=== PATIENT | female | born 1990 | race African-American/Black ===

== ENCOUNTER 2017-12-28 09:32 | Inpatient (IN) | payer BC, MEDICAID, OTHER ==
[~2017-12-28] VITALS: Ht 160 cm; Wt 61.2 kg
[2017-12-28] MEDS ORDERED: SODIUM CHLORIDE 0.9% 1,000 ML IV ONE ×2 (10:09→14:39)
[2017-12-28] MEDS ORDERED: ONDANSETRON HCL 4MG/2ML INJ IV STA (10:09)
[2017-12-28] MEDS ORDERED: MORPHINE SULFATE 4 MG/ML CPJ (NOT FOR IM USE) IV STA (10:09)
[2017-12-28] MEDS ORDERED: FAMOTIDINE 20MG/2ML VIAL IV STA (10:09)
[2017-12-28 10:27] LABS: BASOPHILS % 1.4 % (0.0-2.0); EOSINOPHILS % 1.6 % (0.0-5.0); HEMATOCRIT. 42.7 % (36.0-48.0); HEMOGLOBIN. 14.6 g/dL (12.0-16.0); LYMPHOCYTES % 24.9 % (20.0-50.0); MEAN CORPUSCULAR HEMOGLOBIN 31.6 pg (28.0-32.0); MEAN CORPUSCULAR VOLUME 92.5 fL (81.0-99.0); MEAN PLATELET VOLUME 9.1 fl (7.4-10.4); MONOCYTES % 5.9 % (2.0-8.0); NEUTROPHILS % 66.2 % (40.0-76.0); PLATELET 281 x1000/uL (130-400); RED BLOOD CELL COUNT 4.62 mill/uL (4.2-5.4); RED CELL DISTRIBUTION WIDTH 14.2 % (11.6-14.6)
[2017-12-28] MEDS ORDERED: DIATR MEGLU/DIATRIZOATE SOLN 30ML ONE (10:35)
[2017-12-28 10:37] LABS: INR 1.3; PARTIAL THROMBOPLASTIN TIME 27.6 sec (23.4-31.0); PROTHROMBIN TIME 12.8 sec (9.1-11.1)
[2017-12-28 12:25] LABS: CHLORIDE 108 mEq/L (98-107)
[2017-12-28 12:37] LABS: HCG SCREEN NEGATIVE
[2017-12-28] MEDS ORDERED: ONDANSETRON HCL 4MG/2ML INJ IV ONE (14:45)
[2017-12-28] MEDS ORDERED: IOHEXOL-300 100 ML BOTTLE ONE (15:29)
[2017-12-28] MEDS ORDERED: [UNRECOGNIZED DRUG - OTHER] PO (17:23)
[2017-12-28] MEDS ORDERED: ONDANSETRON HCL 4MG/2ML INJ IV PRN (17:30)
[2017-12-28] MEDS ORDERED: DEXT 5%/0.45% NACL 1000ML 1,000 ML IV SCH (17:30)
[2017-12-28 17:34] VITALS: BP 117/74
[2017-12-28 17:50] VITALS: BP 104/56
[2017-12-28] MEDS ORDERED: MESA1.2T2 MT (18:11)
[2017-12-28] MEDS ORDERED: MORPHINE SULFATE 4 MG/ML CPJ (NOT FOR IM USE) IV PRN (18:31)
[2017-12-28 20:00] VITALS: BP 113/46
[2017-12-28] MEDS ORDERED: METHYLPREDNISOLONE SOD SUCC 40 MG/ML VIAL IV SCH (20:00)
[2017-12-28] MEDS ORDERED: CEFTRIAXONE 1 G PREMIX 50 ML IV SCH (21:00)
[2017-12-28] MEDS ORDERED: METRONIDAZOLE 500 MG PREMIX 100 ML IV SCH (22:00)
[2017-12-28 22:54] LABS: CLARITY URINE CLEAR (CLEAR); COLOR URINE YELLOW (YELLOW); KETONES URINE 2+ (NEGATIVE); LEUKOCYTE ESTERASE URINE NEGATIVE (NEGATIVE); NITRITE URINE NEGATIVE (NEGATIVE); OCCULT BLOOD URINE NEGATIVE (NEGATIVE); PROTEIN URINE NEGATIVE (NEGATIVE); SPECIFIC GRAVITY URINE 1.086 (1.005-1.030); UROBILINOGEN URINE 0.2 E.U./dL (0.2-1.0)
[2017-12-28 23:24] LABS: *COCAINE SCREEN URINE NEGATIVE (NEGATIVE)
[2017-12-28 23:25] LABS: *AMPHETAMINES SCREEN URINE NEGATIVE (NEGATIVE); *BARBITURATES SCREEN URINE NEGATIVE (NEGATIVE); *BENZODIAZEPINES SCREEN URINE NEGATIVE (NEGATIVE); METHADONE URINE SCREEN NEGATIVE (NEGATIVE); PHENCYCLIDINE URINE SCREEN NEGATIVE (NEGATIVE)
[2017-12-28 23:32] LABS: CANNABINOID URINE SCREEN PRESUMTIVE POSITIVE (NEGATIVE); OPIATES URINE SCREEN PRESUMTIVE POSITIVE (NEGATIVE)
[2017-12-29 00:30] VITALS: BP 121/74
[2017-12-29] MEDS ORDERED: PANTOPRAZOLE SODIUM 40 MG/VIAL IV SCH (09:00)
== END 2017-12-29 01:40 | disposition left against medical advice (07) | DRG 245 ==
LOC: ER 10:23 → 8WST 14:40 → EDBEDREQ 14:50 → ENRESERV 15:20
PROVIDERS: ADMIT Internal Medicine; ATTEND Internal Medicine
DX: K51.90 Ulcerative colitis, unspecified, without complications (principal); E87.8 Other disorders of electrolyte and fluid balance, not elsewhere classified; F12.90 Cannabis use, unspecified, uncomplicated; Z53.21 Procedure and treatment not carried out due to patient leaving prior to being seen by health care provider
CPT/HCPCS: 36415; 74177; 80305; 84703; 85651; 96361; 96374; 96375; 99285; J0696; J2270; J2405; J2920; J3490; J7030; Q9963; Q9967

== ENCOUNTER 2018-05-03 08:25 | Emergency (ER) | payer OTHER ==
[~2018-05-03] VITALS: Ht 162.6 cm; Wt 68.0 kg
[~2018-05-03 08:25] MED LIST: MESA1.2T2 MT
[2018-05-03 08:32] VITALS: BP 140/65
== END 2018-05-03 12:25 | disposition home or self-care (01) ==
LOC: ER 08:25
DX: R11.2 Nausea with vomiting, unspecified (principal); F12.10 Cannabis abuse, uncomplicated; K51.90 Ulcerative colitis, unspecified, without complications; Z76.0 Encounter for issue of repeat prescription
CPT/HCPCS: 99283

== ENCOUNTER 2018-08-02 21:34 | Emergency (ER) | payer OTHER | END 2018-08-03 03:50 | disposition left against medical advice (07) | LOC: ER 21:34 | DX: Z53.21 Procedure and treatment not carried out due to patient leaving prior to being seen by health care provider (principal) ==

== ENCOUNTER 2018-08-02 21:41 | Inpatient (IN) | payer OTHER ==
[~2018-08-02] VITALS: Ht 162.6 cm; Wt 70.3 kg
[2018-08-03] MEDS ORDERED: ONDANSETRON HCL 4MG/2ML INJ IV STA (00:44)
[2018-08-03] MEDS ORDERED: MORPHINE SULFATE 4 MG/ML CPJ (NOT FOR IM USE) IV STA (00:44)
[2018-08-03] MEDS ORDERED: SODIUM CHLORIDE 0.9% 1,000 ML IV ONE (00:44)
[2018-08-03 01:08] LABS: BASOPHILS % 0.3 % (0.0-2.0); EOSINOPHILS % 0.5 % (0.0-5.0); HEMATOCRIT. 41.5 % (36.0-48.0); HEMOGLOBIN. 14.1 g/dL (12.0-16.0); MEAN CORPUSCULAR HEMOGLOBIN 30.9 pg (28.0-32.0); MEAN CORPUSCULAR VOLUME 91.1 fL (81.0-99.0); MONOCYTES % 7.7 % (2.0-8.0); NEUTROPHILS % 69.5 % (40.0-76.0); PLATELET 317 x1000/uL (130-400); RED BLOOD CELL COUNT 4.55 mill/uL (4.2-5.4); RED CELL DISTRIBUTION WIDTH 13.6 % (11.6-14.6)
[2018-08-03 01:17] LABS: CHLORIDE 103 mEq/L (98-107)
[2018-08-03 01:18] LABS: INR 1.3; PARTIAL THROMBOPLASTIN TIME 29.4 sec (23.4-31.0); PROTHROMBIN TIME 13.1 sec (9.6-11.0)
[2018-08-03 01:38] LABS: CLARITY URINE CLEAR (CLEAR); COLOR URINE YELLOW (YELLOW); KETONES URINE 4+ (NEGATIVE); LEUKOCYTE ESTERASE URINE NEGATIVE (NEGATIVE); NITRITE URINE NEGATIVE (NEGATIVE); OCCULT BLOOD URINE NEGATIVE (NEGATIVE); PH URINE 5.5 (4.5-8.0); PROTEIN URINE TRACE (NEGATIVE); SPECIFIC GRAVITY URINE 1.036 (1.005-1.030)
[2018-08-03 01:40] LABS: B-HCG QUANTITATIVE 35129 mIU/mL (<3)
[2018-08-03] MEDS ORDERED: ONDANSETRON HCL 4MG/2ML INJ IV ONE (04:45)
[2018-08-03 09:00] VITALS: BP 101/48
[2018-08-03 10:12] VITALS: BP 101/48
[2018-08-03] MEDS ORDERED: ACETAMINOPHEN 650MG SUPP PR PRN (11:15)
[2018-08-03] MEDS: DEXT 5%/0.45% NACL 1000ML 1,000 ML IV SCH (11:15)
[2018-08-03 12:00] VITALS: BP 111/65
[2018-08-03 12:10] LABS: HEMATOCRIT 38.3 % (36.0-48.0); HEMOGLOBIN 13.1 g/dL (12.0-16.0)
[2018-08-03 15:05] LABS: *AMPHETAMINES SCREEN URINE NEGATIVE (NEGATIVE); *BARBITURATES SCREEN URINE NEGATIVE (NEGATIVE); *BENZODIAZEPINES SCREEN URINE NEGATIVE (NEGATIVE); *COCAINE SCREEN URINE NEGATIVE (NEGATIVE); METHADONE URINE SCREEN NEGATIVE (NEGATIVE); PHENCYCLIDINE URINE SCREEN NEGATIVE (NEGATIVE)
[2018-08-03 15:11] LABS: CANNABINOID URINE SCREEN PRESUMTIVE POSITIVE (NEGATIVE); OPIATES URINE SCREEN PRESUMTIVE POSITIVE (NEGATIVE)
[2018-08-03 16:00] VITALS: BP 98/54
[2018-08-03] MEDS: NITROFURANTOIN MACROCRYSTAL 50MG CAPSULE PO SCH (17:39)
[2018-08-03 20:00] VITALS: BP 101/61
[2018-08-03] MEDS: SULFASALAZINE 500MG TABLET PO SCH (21:23)
[2018-08-04] VITALS: BP 114/52
[2018-08-04] MEDS: NITROFURANTOIN MACROCRYSTAL 50MG CAPSULE PO SCH ×2 (00:13→05:45)
[2018-08-04] MEDS: ONDANSETRON HCL 4MG/2ML INJ IV PRN ×2 (00:14→20:36)
[2018-08-04] MEDS: DEXT 5%/0.45% NACL 1000ML 1,000 ML IV SCH ×2 (00:46→16:16)
[2018-08-04 04:00] VITALS: BP 103/56
[2018-08-04 06:43] LABS: BASOPHILS % 0.8 % (0.0-2.0); EOSINOPHILS % 2.1 % (0.0-5.0); HEMATOCRIT. 35.2 % (36.0-48.0); HEMOGLOBIN. 12.1 g/dL (12.0-16.0); LYMPHOCYTES % 27.4 % (20.0-50.0); MEAN CORPUSCULAR HEMOGLOBIN 31.2 pg (28.0-32.0); MEAN CORPUSCULAR VOLUME 91.1 fL (81.0-99.0); MEAN PLATELET VOLUME 9.2 fl (7.4-10.4); MONOCYTES % 10.8 % (2.0-8.0); NEUTROPHILS % 58.9 % (40.0-76.0); PLATELET 256 x1000/uL (130-400); RED BLOOD CELL COUNT 3.86 mill/uL (4.2-5.4); RED CELL DISTRIBUTION WIDTH 13.4 % (11.6-14.6)
[2018-08-04 07:12] LABS: CHLORIDE 105 mEq/L (98-107)
[2018-08-04 07:32] LABS: LDL CHOLESTEROL 73 mg/dL (5-100)
[2018-08-04 07:33] LABS: HDL CHOLESTEROL 61 mg/dL (40-59)
[2018-08-04 07:34] LABS: T4 FREE 1.12 ng/dL (0.76-1.46)
[2018-08-04 08:00] VITALS: BP 107/53
[2018-08-04] MEDS: SULFASALAZINE 500MG TABLET PO SCH ×2 (09:19→18:04)
[2018-08-04] MEDS: ACETAMINOPHEN 325MG TABLET PO PRN ×2 (09:19→21:40)
[2018-08-04 12:00] VITALS: BP 109/70
[2018-08-04] MEDS ORDERED: POTASSIUM CHLORIDE INJ 40 MEQ in DEXT 5% WATER 500 ML IV NR (12:30)
[2018-08-04] MEDS: CEFTRIAXONE 1 G PREMIX 50 ML IV SCH (14:51)
[2018-08-04 20:00] VITALS: BP 100/53
[2018-08-04] MEDS ORDERED: POTASSIUM CHLORIDE 20MEQ TABLET SR PO NR (20:20)
[2018-08-05] VITALS: BP 99/58
[2018-08-05] MEDS: DEXT 5%/0.45% NACL 1000ML 1,000 ML IV SCH ×2 (03:44→16:40)
[2018-08-05 04:00] VITALS: BP 101/46
[2018-08-05 08:00] VITALS: BP 108/49
[2018-08-05] MEDS: SULFASALAZINE 500MG TABLET PO SCH ×2 (09:16→17:23)
[2018-08-05] MEDS: CEFTRIAXONE 1 G PREMIX 50 ML IV SCH (09:16)
[2018-08-05 10:59] LABS: BASOPHILS % 0.4 % (0.0-2.0); EOSINOPHILS % 1.7 % (0.0-5.0); HEMATOCRIT. 36.9 % (36.0-48.0); HEMOGLOBIN. 12.5 g/dL (12.0-16.0); LYMPHOCYTES % 25.2 % (20.0-50.0); MEAN PLATELET VOLUME 8.9 fl (7.4-10.4); MONOCYTES % 10.1 % (2.0-8.0); NEUTROPHILS % 62.6 % (40.0-76.0); PLATELET 267 x1000/uL (130-400); RED BLOOD CELL COUNT 4.01 mill/uL (4.2-5.4); RED CELL DISTRIBUTION WIDTH 13.3 % (11.6-14.6)
[2018-08-05 11:10] LABS: CHLORIDE 108 mEq/L (98-107)
[2018-08-05 12:00] VITALS: BP 106/69
[2018-08-05] MEDS ORDERED: POTASSIUM CHLORIDE 20MEQ TABLET SR PO NR (12:30)
[2018-08-05 16:00] VITALS: BP 105/64
[2018-08-05 16:59] VITALS: BP 122/80
== END 2018-08-05 18:00 | disposition home or self-care (01) | DRG 566 ==
LOC: ER 21:41 → 6EST 08-03 05:10 → ENRESERV 08-03 07:40 → EDBEDREQ 08-03 07:49
PROVIDERS: ADMIT Internal Medicine; ATTEND Internal Medicine
DX: O99.611 Diseases of the digestive system complicating pregnancy, first trimester (principal); D68.59 Other primary thrombophilia; O20.8 Other hemorrhage in early pregnancy; K51.911 Ulcerative colitis, unspecified with rectal bleeding; O23.41 Unspecified infection of urinary tract in pregnancy, first trimester; O99.111 Other diseases of the blood and blood-forming organs and certain disorders involving the immune mechanism complicating pregnancy, first trimester; E87.6 Hypokalemia; O99.281 Endocrine, nutritional and metabolic diseases complicating pregnancy, first trimester; R06.00 Dyspnea, unspecified; O99.321 Drug use complicating pregnancy, first trimester; F12.90 Cannabis use, unspecified, uncomplicated; Z79.899 Other long term (current) drug therapy; Z3A.01 Less than 8 weeks gestation of pregnancy
CPT/HCPCS: 36415; 76801; 80048; 80061; 80305; 83605; 84145; 84439; 84443; 84481; 84484; 84702; 85014; 85018; 86850; 86900; 93306; 93970; 96374; 96375; 99285; J0696; J2270; J2405; J3480; J7030; J7060

== ENCOUNTER 2018-09-01 17:11 | Emergency (ER) | payer OTHER ==
[~2018-09-01] VITALS: Ht 162.6 cm; Wt 71.0 kg
[2018-09-01] MEDS ORDERED: ONDANSETRON HCL 4MG/2ML INJ IV STA (19:12)
[2018-09-01] MEDS ORDERED: SODIUM CHLORIDE 0.9% 1,000 ML IV ONE (19:12)
[2018-09-01] MEDS ORDERED: MORPHINE SULFATE 4 MG/ML CPJ (NOT FOR IM USE) IV STA (19:12)
[2018-09-01 20:17] LABS: BASOPHILS % 0.2 % (0.0-2.0); EOSINOPHILS % 0.2 % (0.0-5.0); HEMATOCRIT. 37.8 % (36.0-48.0); HEMOGLOBIN. 13.1 g/dL (12.0-16.0); LYMPHOCYTES % 9.2 % (20.0-50.0); MEAN CORPUSCULAR HEMOGLOBIN 31.6 pg (28.0-32.0); MEAN CORPUSCULAR VOLUME 91.2 fL (81.0-99.0); MEAN PLATELET VOLUME 9.4 fl (7.4-10.4); MONOCYTES % 3.8 % (2.0-8.0); NEUTROPHILS % 86.6 % (40.0-76.0); PLATELET 274 x1000/uL (130-400); RED BLOOD CELL COUNT 4.14 mill/uL (4.2-5.4); RED CELL DISTRIBUTION WIDTH 13.1 % (11.6-14.6)
[2018-09-01 20:21] LABS: CHLORIDE 104 mEq/L (98-107)
[2018-09-01 20:25] LABS: INR 1.2; PARTIAL THROMBOPLASTIN TIME 26.1 sec (23.4-31.0); PROTHROMBIN TIME 12.6 sec (9.6-11.0)
[2018-09-01 20:27] LABS: ETHANOL BLOOD < 10 mg/dL
[2018-09-01 20:45] LABS: B-HCG QUANTITATIVE 84618 mIU/mL (<3)
[2018-09-01 22:46] VITALS: BP 119/72
== END 2018-09-01 22:48 | disposition home or self-care (01) ==
LOC: ER 17:11
DX: O20.0 Threatened abortion (principal); O26.891 Other specified pregnancy related conditions, first trimester; Z3A.10 10 weeks gestation of pregnancy; Z98.890 Other specified postprocedural states
CPT/HCPCS: 36415; 76801; 80053; 80320; 83605; 83690; 84702; 85025; 85610; 85730; 86850; 86900; 86901; 87040; 96361; 96374; 96375; 99284; J2270; J2405; J7030; J7040; G0480

== ENCOUNTER 2018-09-03 21:06 | Inpatient (IN) | payer OTHER ==
[~2018-09-03] VITALS: Ht 162.6 cm; Wt 70.3 kg
[2018-09-03] MEDS ORDERED: SODIUM CHLORIDE 0.9% 1,000 ML IV ONE (23:15)
[2018-09-03] MEDS ORDERED: ONDANSETRON HCL 4MG/2ML INJ IV ONE (23:15)
[2018-09-03] MEDS ORDERED: METRONIDAZOLE 500 MG PREMIX 100 ML IV ONE (23:15)
[2018-09-03] MEDS ORDERED: MORPHINE SULFATE 4 MG/ML CPJ (NOT FOR IM USE) IV ONE (23:15)
[2018-09-03] MEDS ORDERED: LEVOFLOXACIN 500MG PREMIX 100 ML IV ONE (23:15)
[2018-09-04 00:08] LABS: CLARITY URINE CLOUDY (CLEAR); COLOR URINE DARK YELLOW (YELLOW); KETONES URINE 4+ (NEGATIVE); LEUKOCYTE ESTERASE URINE 1+ (NEGATIVE); NITRITE URINE NEGATIVE (NEGATIVE); OCCULT BLOOD URINE 3+ (NEGATIVE); PROTEIN URINE 1+ (NEGATIVE); SPECIFIC GRAVITY URINE 1.029 (1.005-1.030)
[2018-09-04 00:53] LABS: BASOPHILS % 0.3 % (0.0-2.0); EOSINOPHILS % 0.1 % (0.0-5.0); HEMATOCRIT. 35.9 % (36.0-48.0); HEMOGLOBIN. 12.2 g/dL (12.0-16.0); LYMPHOCYTES % 9.3 % (20.0-50.0); MEAN CORPUSCULAR HEMOGLOBIN 30.9 pg (28.0-32.0); MEAN CORPUSCULAR VOLUME 91.1 fL (81.0-99.0); MONOCYTES % 5.4 % (2.0-8.0); NEUTROPHILS % 84.9 % (40.0-76.0); PLATELET 265 x1000/uL (130-400); RED BLOOD CELL COUNT 3.94 mill/uL (4.2-5.4); RED CELL DISTRIBUTION WIDTH 12.9 % (11.6-14.6)
[2018-09-04 00:58] LABS: CHLORIDE 107 mEq/L (98-107)
[2018-09-04] MEDS ORDERED: METOCLOPRAMIDE HCL 10MG/2ML VIAL IV ONE (04:00)
[2018-09-04] MEDS ORDERED: KETOROLAC 15MG/ML VIAL IV NR (04:15)
[2018-09-04] MEDS ORDERED: KETOROLAC 30MG/ML VIAL IV ONE (04:15)
[2018-09-04 08:50] VITALS: BP 106/61
[2018-09-04] MEDS ORDERED: ONDANSETRON HCL 4MG/2ML INJ IV PRN ×2 (10:00→22:45)
[2018-09-04] MEDS ORDERED: IPRATROPIUM/ALBUTEROL 0.5-3(2.5)MG/3ML NEB INH PRN (10:00)
[2018-09-04] MEDS ORDERED: ACETAMINOPHEN 325MG TABLET PO PRN ×2 (10:00→22:45)
[2018-09-04] MEDS ORDERED: DIPHENHYDRAMINE 50MG/ML VIAL IV PRN (10:00)
[2018-09-04] MEDS ORDERED: MORPHINE SULFATE 2 MG/ML CPJ (NOT FOR IM USE) IV PRN ×2 (10:00→22:45)
[2018-09-04] MEDS ORDERED: LORAZEPAM 2MG/ML CPJ IV PRN (10:00)
[2018-09-04] MEDS ORDERED: METRONIDAZOLE 500 MG PREMIX 100 ML IV SCH (11:00)
[2018-09-04] MEDS ORDERED: FAMOTIDINE 20MG/2ML VIAL IV SCH (11:00)
[2018-09-04] MEDS ORDERED: POTASSIUM CHLORIDE INJ 40 MEQ in DEXT 5% WATER 500 ML IV SCH (11:00)
[2018-09-04 11:38] VITALS: BP 100/41
[2018-09-04] MEDS: DEXT 5%/0.45% NACL KCL 20MEQ/L 1,000 ML IV SCH (13:42)
[2018-09-04] MEDS: SULFASALAZINE 500MG TABLET PO SCH ×2 (13:58→16:40)
[2018-09-04 16:04] VITALS: BP 104/64
[2018-09-04 20:00] VITALS: BP 101/56
[2018-09-04] MEDS ORDERED: LEVOFLOXACIN 500MG PREMIX 100 ML IV SCH (21:00)
[2018-09-05] VITALS: BP 120/61
[2018-09-05] MEDS ORDERED: PIPERACILLIN/TAZOBACTAM 3.375GM/50ML PREMIX IV SCH
[2018-09-05] MEDS ORDERED: PIPERACILLIN/TAZ 3.375G PREMIX 50 ML IV SCH
[2018-09-05 04:00] VITALS: BP 99/53
[2018-09-05] MEDS: DEXT 5%/0.45% NACL KCL 20MEQ/L 1,000 ML IV SCH ×2 (06:10→07:00)
[2018-09-05 06:53] LABS: BASOPHILS % 0.5 % (0.0-2.0); EOSINOPHILS % 2.2 % (0.0-5.0); HEMOGLOBIN. 10.8 g/dL (12.0-16.0); LYMPHOCYTES % 26.2 % (20.0-50.0); MEAN CORPUSCULAR HEMOGLOBIN 31.6 pg (28.0-32.0); MEAN CORPUSCULAR VOLUME 90.2 fL (81.0-99.0); MEAN PLATELET VOLUME 9.7 fl (7.4-10.4); MONOCYTES % 9.2 % (2.0-8.0); NEUTROPHILS % 61.9 % (40.0-76.0); PLATELET 259 x1000/uL (130-400); RED BLOOD CELL COUNT 3.43 mill/uL (4.2-5.4); RED CELL DISTRIBUTION WIDTH 12.7 % (11.6-14.6)
[2018-09-05 06:59] LABS: CHLORIDE 108 mEq/L (98-107)
[2018-09-05 07:12] LABS: HDL CHOLESTEROL 67 mg/dL (40-59)
[2018-09-05 07:14] LABS: LDL CHOLESTEROL 67 mg/dL (5-100)
[2018-09-05 07:16] LABS: T4 FREE 1.05 ng/dL (0.76-1.46)
[2018-09-05] MEDS: SULFASALAZINE 500MG TABLET PO SCH ×2 (09:00→17:07)
[2018-09-05] MEDS: ONDANSETRON HCL 4MG/2ML INJ IV PRN ×2 (12:02→18:30)
[2018-09-05] MEDS: MORPHINE SULFATE 2 MG/ML CPJ (NOT FOR IM USE) IV PRN ×2 (15:24→21:28)
[2018-09-05 16:00] VITALS: BP 119/52
[2018-09-05 20:00] VITALS: BP 106/65
[2018-09-06] VITALS: BP 105/57
[2018-09-06] MEDS: ONDANSETRON HCL 4MG/2ML INJ IV PRN (01:37)
[2018-09-06] MEDS: DEXT 5%/0.45% NACL KCL 20MEQ/L 1,000 ML IV SCH ×2 (03:32→13:48)
[2018-09-06] MEDS: MORPHINE SULFATE 2 MG/ML CPJ (NOT FOR IM USE) IV PRN ×3 (03:34→22:05)
[2018-09-06 04:00] VITALS: BP 119/60
[2018-09-06] MEDS: SULFASALAZINE 500MG TABLET PO SCH ×2 (08:34→16:24)
[2018-09-06] MEDS ORDERED: NITROFURANTOIN 100MG M/M CAPSULE PO ONE (10:30)
[2018-09-06 10:51] VITALS: BP 119/79
[2018-09-06] MEDS ORDERED: ONDANSETRON 4MG ODT PO NR (11:30)
[2018-09-06 12:00] VITALS: BP 117/62
[2018-09-06 12:36] LABS: CHLORIDE 105 mEq/L (98-107)
[2018-09-06 12:38] LABS: HEMATOCRIT 34.8 % (36.0-48.0); MEAN CORPUSCULAR HEMOGLOBIN 31.1 pg (28.0-32.0); MEAN CORPUSCULAR VOLUME 90.5 fL (81.0-99.0); PLATELET 218 x1000/uL (130-400); RED BLOOD CELL COUNT 3.84 mill/uL (4.2-5.4); RED CELL DISTRIBUTION WIDTH 12.8 % (11.6-14.6)
[2018-09-06] MEDS ORDERED: METHYLPREDNISOLONE SOD SUCC 40 MG/ML VIAL IV NR (13:30)
[2018-09-06 16:00] VITALS: BP 115/74
[2018-09-06 20:00] VITALS: BP 108/57
[2018-09-06] MEDS: NITROFURANTOIN 100MG M/M CAPSULE PO SCH (21:42)
[2018-09-06] MEDS: ONDANSETRON 4MG ODT PO PRN (22:10)
[2018-09-07] VITALS: BP 96/51
[2018-09-07] MEDS: DEXT 5%/0.45% NACL KCL 20MEQ/L 1,000 ML IV SCH ×2 (01:07→08:38)
[2018-09-07 04:00] VITALS: BP 118/82
[2018-09-07] MEDS: MORPHINE SULFATE 2 MG/ML CPJ (NOT FOR IM USE) IV PRN ×3 (04:48→20:21)
[2018-09-07 06:36] LABS: HEMATOCRIT 33.3 % (36.0-48.0); HEMOGLOBIN 11.6 g/dL (12.0-16.0); MEAN CORPUSCULAR HEMOGLOBIN 31.2 pg (28.0-32.0); MEAN CORPUSCULAR VOLUME 89.3 fL (81.0-99.0); PLATELET 273 x1000/uL (130-400); RED BLOOD CELL COUNT 3.72 mill/uL (4.2-5.4); RED CELL DISTRIBUTION WIDTH 12.7 % (11.6-14.6)
[2018-09-07 06:45] LABS: CHLORIDE 106 mEq/L (98-107)
[2018-09-07 08:00] VITALS: BP 106/53
[2018-09-07] MEDS: SULFASALAZINE 500MG TABLET PO SCH ×2 (08:37→18:21)
[2018-09-07] MEDS: NITROFURANTOIN 100MG M/M CAPSULE PO SCH ×2 (08:37→20:21)
[2018-09-07] MEDS: ONDANSETRON 4MG ODT PO PRN (08:45)
[2018-09-07 12:00] VITALS: BP 121/67
[2018-09-07] MEDS ORDERED: METOCLOPRAMIDE HCL 10MG/2ML VIAL IV PRN (12:00)
[2018-09-07] MEDS: ONDANSETRON HCL 4MG/2ML INJ IV PRN ×2 (12:04→20:21)
[2018-09-07] MEDS ORDERED: POTASSIUM CHLORIDE INJ 40 MEQ in DEXT 5% WATER 500 ML IV NR (14:00)
[2018-09-07] MEDS: METHYLPREDNISOLONE SOD SUCC 40 MG/ML VIAL IV SCH ×2 (14:13→21:46)
[2018-09-07 16:00] VITALS: BP 108/66
[2018-09-07 19:51] LABS: *BARBITURATES SCREEN URINE NEGATIVE (NEGATIVE); *BENZODIAZEPINES SCREEN URINE NEGATIVE (NEGATIVE); *COCAINE SCREEN URINE NEGATIVE (NEGATIVE); METHADONE URINE SCREEN NEGATIVE (NEGATIVE)
[2018-09-07 19:52] LABS: *AMPHETAMINES SCREEN URINE NEGATIVE (NEGATIVE); PHENCYCLIDINE URINE SCREEN NEGATIVE (NEGATIVE)
[2018-09-07 19:58] LABS: CANNABINOID URINE SCREEN PRESUMTIVE POSITIVE (NEGATIVE); OPIATES URINE SCREEN PRESUMTIVE POSITIVE (NEGATIVE)
[2018-09-07 20:00] VITALS: BP 105/71
[2018-09-08] VITALS: BP 109/55
[2018-09-08 04:00] VITALS: BP 102/51
[2018-09-08 06:17] LABS: CHLORIDE 105 mEq/L (98-107)
[2018-09-08] MEDS: METHYLPREDNISOLONE SOD SUCC 40 MG/ML VIAL IV SCH (06:41)
[2018-09-08] MEDS: DEXT 5%/0.45% NACL KCL 20MEQ/L 1,000 ML IV SCH (06:41)
[2018-09-08 06:43] LABS: HEMATOCRIT 34.3 % (36.0-48.0); HEMOGLOBIN 11.7 g/dL (12.0-16.0); MEAN CORPUSCULAR HEMOGLOBIN 30.7 pg (28.0-32.0); MEAN CORPUSCULAR VOLUME 89.8 fL (81.0-99.0); PLATELET 304 x1000/uL (130-400); RED BLOOD CELL COUNT 3.82 mill/uL (4.2-5.4); RED CELL DISTRIBUTION WIDTH 12.6 % (11.6-14.6)
[2018-09-08 08:00] VITALS: BP 110/63
[2018-09-08] MEDS: NITROFURANTOIN 100MG M/M CAPSULE PO SCH (08:49)
[2018-09-08] MEDS: SULFASALAZINE 500MG TABLET PO SCH (08:49)
[2018-09-08 10:33] VITALS: BP 125/63
== END 2018-09-08 10:55 | disposition home or self-care (01) | DRG 566 ==
LOC: ER 22:42 → 6EST 09-04 04:33 → EDBEDREQ 09-04 05:48 → EDBEDREQTM 09-04 05:48 → ENRESERV 09-04 07:21
PROVIDERS: ADMIT Internal Medicine; ATTEND Internal Medicine
DX: O99.111 Other diseases of the blood and blood-forming organs and certain disorders involving the immune mechanism complicating pregnancy, first trimester (principal); D68.59 Other primary thrombophilia; O99.611 Diseases of the digestive system complicating pregnancy, first trimester; O23.41 Unspecified infection of urinary tract in pregnancy, first trimester; K51.911 Ulcerative colitis, unspecified with rectal bleeding; E87.6 Hypokalemia; Z3A.11 11 weeks gestation of pregnancy
CPT/HCPCS: 36415; 76801; 80048; 80061; 80305; 84439; 84443; 85027; 96365; 96366; 99285; J1885; J1956; J2270; J2405; J2543; J2765; J2920; J3480; J3490; J7030; J7040; J7060; Q0162